=== PATIENT | male | born 1975 | race African-American/Black ===

== ENCOUNTER 2019-08-15 19:21 | Emergency (ER) | payer MEDICAID, OTHER ==
[~2019-08-15] VITALS: Ht 170.2 cm; Wt 163.6 kg
[~2019-08-15 19:21] MED LIST: COMBIH IH; LISI-661 PO
[2019-08-15] MEDS ORDERED: METF-960 PO (19:32)
[2019-08-15 21:12] LABS: GLUCOSE,POINT OF CARE 113 MG/DL (70-110)
[2019-08-15 22:21] LABS: HEMATOCRIT 43.7 % (41-53); HEMOGLOBIN 14.1 g/dL (13.5-17.5); NEUTROPHILS % (AUTO) 58.8 % (40.0-70.0); RED CELL DISTRIBUTION WIDTH 14.2 % (11.5-14.5)
[2019-08-15 22:25] LABS: BASOPHILS % (AUTO) 0.8 % (0.0-2.0); EOSINOPHILS % (AUTO) 2.5 % (1.0-6.0); LYMPHOCYTES # (AUTO) 2.9 K/uL (1.0-4.8); LYMPHOCYTES % (AUTO) 28.2 % (22.0-44.0); MEAN CORPUSCULAR HGB CONC 32.3 G/dL (31.0-37.0); MEAN CORPUSCULAR VOLUME 90 fL (80-100); MONOCYTES % (AUTO) 9.7 % (2.0-9.0); PLATELET COUNT (AUTO) 209 K/uL (150-450); RED BLOOD CELL COUNT(AUTO) 4.87 MIL/uL (4.50-5.90)
[2019-08-15] MEDS ORDERED: ACETAMINOPHEN 325 MG TABLET PO ONE (22:30)
[2019-08-15 22:31] LABS: ANION GAP 9 mmol/L (8-16); CALCIUM, TOTAL 9.1 mg/dL (8.8-10.5); CARBON DIOXIDE 26 mmol/L (22-29); CHLORIDE 103 mmol/L (98-107); CREATININE 0.89 mg/dL (0.60-1.30); GLOMERULAR FILTR. RATE CALC > 60 mL/min (>60); GLUCOSE,RANDOM 118 mg/dL (70-110); POTASSIUM 3.8 mmol/L (3.5-5.1); SODIUM SERUM 138 mmol/L (136-145); UREA NITROGEN, BLOOD 15 mg/dL (7-18)
[2019-08-15 22:37] LABS: ALANINE AMINOTRANSFERASE 52 U/L (12-78); ALBUMIN 3.9 g/dL (3.4-5.0); ALKALINE PHOSPHATASE 66 U/L (46-116); ASPARTATE AMINOTRANSFERASE 38 U/L (15-37); BILIRUBIN,TOTAL 0.6 mg/dL (0.1-1.0)
[2019-08-15 22:57] LABS: B-TYPE NATRIURETIC PEPTIDE < 4 pg/mL (0-100)
[2019-08-15 23:30] VITALS: BP 140/90
== END 2019-08-16 00:26 | disposition left against medical advice (07) ==
LOC: EMS 19:22
DX: S01.511A Laceration without foreign body of lip, initial encounter (principal); R55 Syncope and collapse; I10 Essential (primary) hypertension; J45.909 Unspecified asthma, uncomplicated; E11.9 Type 2 diabetes mellitus without complications; E78.00 Pure hypercholesterolemia, unspecified; Z88.1 Allergy status to other antibiotic agents; Z79.899 Other long term (current) drug therapy; W18.09XA Striking against other object with subsequent fall, initial encounter; Y93.89 Activity, other specified; Y92.89 Other specified places as the place of occurrence of the external cause; Y99.8 Other external cause status
CPT/HCPCS: 36415; 70450; 70486; 71045; 80053; 82962; 83880; 84484; 85025; 93005; 99285; G0480